=== PATIENT | female | born 1985 | race Caucasian/White ===

== ENCOUNTER 2023-06-08 14:18 | Emergency (ER) | payer SELFPAY ==
[2023-06-08] VITALS (20 sets, daily range): BP systolic 101–137; BP diastolic 52–69; PULSE 56–98; RESP 15–25; TEMP 36.7; O2SAT 97–100
--- NOTE | ~2023-06-08 | XR_ITS ---
EXAMINATION: XR chest 2V DATE: 06/08/2023 14:48 INDICATION: Intermittent chest pain. TECHNIQUE: Frontal and lateral views of the chest were obtained. COMPARISON: None. FINDINGS: The chest demonstrates clear lungs without pneumonia, pleural effusion, or pneumothorax. Th e heart size is normal. IMPRESSION: 1. No acute cardiopulmonary disease. Reviewed, dictated and finalized at location A. [facility]ER
--- NOTE | 2023-06-08 14:19 | ECG_ITS ---
Measurements Intervals [place] Rate: 96 P: 73 ND: 124 QRS: 48 QRSD: 91 T: 51 QT: 353 QTc: 446 Interpretive Statements SINUS RHYTHM WITH SINUS ARRHYTHMIA POSSIBLE LEFT ATRIAL ENLARGEMENT INCOMPLETE RIGHT BUNDLE BRANCH BLOCK BORDERLINE ST-T WAVE ABNORMALITY- INF/LAT LEADS BASELINE ARTIFACT- I, III, AVL BORDERLINE ECG NO PREVIOUS ECG AVAILABLE FOR COMPARISON Electronically Signed On 06-08-2023 16:25:53 [employer] by Neil Bhatt D.O.
[2023-06-08 14:44] LABS: Basophils Absolute Auto 0.1 K/mm3 (0.0-0.1); Basophils Percent Auto 0.5 % (0.2-1.2); Eosinophils Absolute Auto 0.2 K/mm3 (0-0.3); Eosinophils Percent Auto 1.4 % (0-4.4); Hematocrit 39.4 % (37.0-47.0); Hemoglobin 13.2 g/dL (12.0-15.0); Immature Granulocyte Absolute 0.02 K/mm3 (0.00-0.031); Immature Granulocyte Percent A 0.2 % (0-0.5); Lymphocytes Absolute Auto 3.93 K/mm3 (0.9-3.2); Mean Corpuscular HGB Conc 33.5 g/dl (32-36); Mean Corpuscular Hemoglobin 30.6 pg (26-34); Mean Corpuscular Volume 91.4 fl (80-100); Mean Platelet Volume 9.2 fl (7.4-10.4); Monocytes Absolute Auto 0.6 K/mm3 (0.1-0.6); Neutrophils Absolute Auto 6.2 K/mm3 (1.3-6.7); Neutrophils Percent Auto 56.9 % (45.5-73.1); Platelet Count Result 339 k/mm3 (150-375); Red Blood Count 4.31 M/mm3 (4.2-5.4); Red Cell Distribution Width 12.3 % (11.5-14.5); White Blood Count 10.9 K/mm3 (4.5-10.0)
[2023-06-08 14:54] LABS: Alanine Aminotransferase 13 U/L (6-35); Albumin Level 4.1 g/dL (3.5-5.1); Alkaline Phosphatase 58 U/L (38-126); Anion Gap 5 mmol/L (8-16); Aspartate Amino Transferase 21 U/L (14-36); Bilirubin,Total 0.4 mg/dL (0.2-1.3); Blood Urea Nitrogen 4 mg/dL (7-17); Calcium 8.8 mg/dL (8.4-10.2); Carbon Dioxide 27 mmol/L (22-30); Chloride 105 mmol/L (98-107); Estimated CRCL calculation 96 ml/min; Estimated Glomerular Filt Rate > 60; Glucose 116 mg/dL (65-110); Lipase 43 U/L (23-300); Potassium 3.5 mmol/L (3.4-5.0); Sodium 137 mmol/L (137-145)
[2023-06-08] MEDS: Please add drug allergy info to patient profile. 1 EACH XX (15:02)
[2023-06-08] MEDS: ASPIRIN 81 MG CHEWABLE TABLET 324 MG PO (15:02)
[2023-06-08 15:05] LABS: Troponin I < 0.012 ng/mL (0.000-0.034)
--- NOTE | 2023-06-08 15:58 | ED.GENADULT ---
HPI - General Adult General Chief complaint: Chest Pain Stated complaint: chest pain Time Seen by Provider: 06/08/23 15:14 History of Present Illness HPI narrative: Rosio Al is a 38 y/o female who presents with reports of having episode of mid sternal chest pain yesterday that lasted about 5 minutes. She states she was walking from the bathroom at work when it happened and then she checked her b/p and it was in the 170's systolic. She states that she kept checking her b/p and it started to trend down and improve. She states that today she just feels off/ fatigue/ with some mild aching to her chest and left shoulder that has been off and on today. Denies hx of NH/ HTN/ HLD/ DM- she is not on any medications daily for anything Related Data Allergies Allergy/AdvReac Type Severity Reaction Status Date / Time doxycycline Allergy Dizziness Verified 06/08/23 15:00 Review of Systems Review of Systems: CONSTITUTIONAL: Denies fever, chills, or sweats. EYES: Denies visual changes, redness, or discharge. ENT: Denies rhinorrhea, congestion, sore throat, or otalgia. CARDIOVASCULAR: Reports chest pain yesterday- denies palpitations, or edema. RESPIRATORY: Reports of a little cough that started today with maybe some SOB> GASTROINTESTINAL: Denies abdominal pain, nausea, vomiting, or diarrhea. GENITOURINARY: Denies dysuria or hematuria. SKIN: Denies rash or itching. MUSCULOSKELETAL: Denies back pain, joint pain, or myalgia. NEUROLOGIC: Denies headache, numbness, dizziness, or weakness. PSYCHIATRIC: Denies anxiety or depression. Exam Narrative: GENERAL: Well-appearing, well-nourished, and in no acute distress. HEAD: Normocephalic, atraumatic. EYES: PERRLA and EOMI. ENT: Nares clear, no rhinorrhea or epistaxis. Mucous membranes moist. Oropharynx without tonsillar hypertrophy exudate or other lesions. NECK: Supple. No adenopathy or masses. No carotid bruits or JVD CHEST: Clear to auscultation. No respiratory distress. No wheezes rales or rhonchi HEART: Regular rate and rhythm. No murmur heard. Normal peripheral pulses. ABDOMEN: Soft, nontender, nondistended, normal active bowel sounds. EXTREMITIES: Normal range of motion. No edema. SKIN: Warm, dry, no rash. NEURO: No focal deficits. Alert and oriented x3. PSYCH: Normal mood and affect. Course Vital Signs Vital signs: Vital Signs Temperature 36.7 C 06/08/23 14:24 Pulse Rate 98 06/08/23 14:24 Respiratory Rate 16 06/08/23 14:24 Blood Pressure 137/67 06/08/23 14:24 Pulse Oximetry 100 06/08/23 14:24 Temperature 36.7 C 06/08/23 14:24 Pulse Rate 98 06/08/23 14:24 Respiratory Rate 16 06/08/23 14:24 Blood Pressure 137/67 06/08/23 14:24 Pulse Oximetry 100 06/08/23 14:24 Medical Decision Making MDM Narrative Medical decision making narrative: On exam pt is resting on stretcher in no acute distress She reports of having an alarming episode of mid sternal chest pain that lasted about 5 minutes while walking at work yesterday. Her b/p was found to be elevated - she states it was different from the chest pain she experiences with anxiety from time to time She reports of noticing a little bit of a cough that started today with maybe some SOB Denies fever/chills Not on any medications/ no hx of blood clots/ htn/ hld/ NH lung sounds clear Heart rate regular rhythm CBC-stable CMP- stable Trop 1- negative Trop 2- negative BNP- negative Lipase- negative Ddimer- negative FLu A/B/COVID/RSV- negative Chest x ray- No acute findings EKG- NSR Heart Score of 1-2 Discussed results with pt and she feels comfortable being d/c home and she will follow up with her PCP - she also is asking for something to help with her anxiety at home and believes that her chest pain episode might of been related to her anxiety Discussed that I can write for her to try Atarax for anxiety but encouraged pt that she did the right thing with coming in with the c
[2023-06-08 15:59] LABS: INR 0.9; Partial Thromboplastin Time 27.7 SECONDS (22.3-36.8)
[2023-06-08 16:33] LABS: NT Pro B Type Natriuretic Pept 76 pg/mL (19.9-100)
[2023-06-08 16:38] LABS: D Dimer < 0.27 ug/mL (<0.48)
[2023-06-08 17:01] LABS: Influenza A QL RT-PCR Negative (Negative); Influenza B QL RT-PCR Negative (Negative); RSV RNA, RT-PCR Negative (Negative); SARS-CoV-2 RNA PCR Negative (Negative)
[2023-06-08 17:28] LABS: Troponin I < 0.012 ng/mL (0.000-0.034)
== END 2023-06-08 17:56 | disposition home or self-care (01) ==
PROVIDERS: Emergency Medicine; Emergency Provider Nurse Practitioner Family
DX: R07.9 Chest pain, unspecified (principal); Z20.822 Contact with and (suspected) exposure to COVID-19
CPT/HCPCS: 36415; 71046; 80053; 83690; 83880; 84484; 85025; 85380; 85610; 85730; 87637; 93005; 99284; A9270